=== PATIENT | male | born 1965 | race Two or more races ===

== ENCOUNTER 2019-01-05 19:34 | Emergency (ER) | payer OTHER ==
[~2019-01-05] VITALS: Ht 170.2 cm; Wt 99.8 kg
[2019-01-05] MEDS ORDERED: IBUPROFEN 600 MG TABLET PO ONE ×2 (20:20→20:30)
[2019-01-05] MEDS ORDERED: ALBUTEROL FS 2.5 MG/3 ML VIAL.NEB NEB ONE (21:00)
[2019-01-05] MEDS ORDERED: IPRATROPIUM NEB FS 0.5 MG/2.5 ML AMPUL.NEB NEB ONE (21:00)
[2019-01-05] MEDS ORDERED: ALBUTEROL FS 2.5 MG/3 ML VIAL.NEB ONE (21:46)
[2019-01-05] MEDS ORDERED: IPRATROPIUM NEB FS 0.5 MG/2.5 ML AMPUL.NEB ONE (21:46)
[2019-01-05 22:16] VITALS: BP 156/82
== END 2019-01-05 22:54 | disposition home or self-care (01) ==
LOC: ER 19:37
DX: S93.491A Sprain of other ligament of right ankle, initial encounter (principal); J45.909 Unspecified asthma, uncomplicated; Z98.890 Other specified postprocedural states; X58.XXXA Exposure to other specified factors, initial encounter; Y93.89 Activity, other specified; Y92.89 Other specified places as the place of occurrence of the external cause; Y99.8 Other external cause status
CPT/HCPCS: 73610; 94640; 99283; A4606